=== PATIENT | female | born 1955 ===

== ENCOUNTER 2017-10-14 07:52 | Day surgery (SDC) | payer MEDICAID ==
[2017-10-14] MEDS ORDERED: PROPOFOL 10 MG/ML VIAL IV ONE (07:53)
[2017-10-14] MEDS ORDERED: LIDOCAINE 2% MDV (20MG/ML) 20ML VIAL IV ONE (07:53)
--- NOTE | 2017-10-17 09:20 | Operative Note ---
DATE OF SURGERY: 10/14/2017 SURGEON: Refugio Wilkinson MD OPERATION: COLONOSCOPY. INDICATIONS: This is a 62-year-old female with history of colon polyps who presented for surveillance colonoscopy. POSTOPERATIVE DIAGNOSES: 1. A 2 mm sessile polyp in the ascending colon that was removed by cold biopsy forceps. 2. Otherwise normal colon. ANESTHESIA: Sedation is per Anesthesia. Pulse oximetry was monitored throughout the procedure to maintain O2 saturation of 90% or greater. Supplemental oxygen was administered via nasal cannula. Cardiac and vital signs were monitored throughout the duration of the procedure, and they were stable. The procedure of colonoscopy and risks and alternatives of the procedure, including the risk of bleeding and perforation, among others, were explained to the patient who voiced understanding and agreed to have the procedure done. Physical examination was performed, and the patient was found stable for sedation. PROCEDURE: The patient was placed in the left lateral position. Sedation was initiated. A digital rectal exam was performed and showed some mild external hemorrhoids with no palpable rectal masses. An Olympus PCF-180AL colonoscope was then inserted into the rectum under direct visualization. It was advanced to the cecum without difficulty. The ileocecal valve and appendiceal orifice were identified and photographed. The colonic mucosa was carefully examined upon introduction of the colonoscope. There were no lesions noted. The light source was still bad and that made visualization difficult but enough to rule out any significant lesions. The colonoscope was then withdrawn while carefully examining the colonic mucosal surfaces. In the ascending colon was a 2 mm sessile polyp that was noted and was removed by cold biopsy forceps. There were no other lesions noted. In the rectum, retroflexion was performed and grade 1 internal hemorrhoids were noted. The colonoscope was then withdrawn and the procedure was terminated. The patient tolerated the procedure well without any immediate complications. She remained with stable vital signs and was transferred to the recovery room. RECOMMENDATIONS: 1. The patient should continue on a high-fiber diet. 2. The patient is to have a repeat colonoscopy for surveillance in 3 or 5 years depending on the histology of the polyp. Thank you for allowing me to participate in the care of your patient. CC: Rachel DEWITT
== END 2017-10-14 09:35 | disposition home or self-care (01) ==
LOC: HOP 07:52
PROVIDERS: ATTEND Internal Medicine Gastroenterology
DX: Z12.11 Encounter for screening for malignant neoplasm of colon (principal); D12.2 Benign neoplasm of ascending colon; E78.00 Pure hypercholesterolemia, unspecified; E11.9 Type 2 diabetes mellitus without complications; Z79.4 Long term (current) use of insulin

== ENCOUNTER 2017-11-29 19:46 | Emergency (ER) | payer MEDICAID ==
[2017-11-29] MEDS ORDERED: ACETAMINOPHEN 1,000 MG/100 ML BTL IVPB ONE (20:04)
[2017-11-29] MEDS ORDERED: ONDANSETRON HCL IV 4 MG/2 ML VIAL IVP ONE (20:04)
[2017-11-29] MEDS ORDERED: 0.9 % SODIUM CHLORIDE 1,000 ML BAG IV ONE (20:04)
--- NOTE | 2017-11-29 20:11 | Emergency Department Record ---
History of Present Illness - General Chief complaint: Flank Pain Stated complaint: FLANK PAIN Time Seen by Provider: 11/29/17 20:03 Source: Patient Mode of Arrival: Ambulatory Limitations: No limitations - History of Present Illness Initial comments: 62 yo female presents with right flank pain that started yesterday. The pain started in the right flank and radiates to the RLQ. She noted a color change in her urine as well. She reports she has passed about 10 renal stones in the past. No fevers, chills, or diarrhea. She has had nausea with some dry heaves. She does not see a urologist. No other recent illness. She does not see a urologist. PCP is Francisca Jeong MD Complaint: Other (Right flank Pain) Onset/Timin -: Days(s) Radiation: R flank Severity: Severe Severity scale (1-10): 8 Quality: Sharp Consistency: Constant, Getting worse Improves with: None Worsens with: Movement, Other Patient : No Associated Symptoms: Nausea/vomiting - Related Data Previous Rx's Medication Instructions Recorded Hydrocodone/Acetaminophen [Gabbs 1 each PO Q6H #15 tablet 11/29/17 5-325 Tablet] Tamsulosin HCl [Flomax] 0.4 mg PO DAILY #10 cap.er.24h 11/29/17 Allergies Allergy/AdvReac Type Severity Reaction Status Date / Time shellfish derived Allergy Severe anaphylaxis Unverified 09/22/17 08:37 Travel Screening - Travel/Exposure Within Last 30 Days Have you traveled within the last 30 days?: No - Travel Symptoms Symptom Screening: None Review of Systems Constitutional: Denies: Chills, Fever, Malaise, Weakness Eyes: Denies: Eye discharge, Eye pain, Photophobia, Vision change ENT: Denies: Congestion, Throat pain Respiratory: Denies: Cough, Dyspnea Cardiovascular: Denies: Chest pain, Syncope Endocrine: Denies: Fatigue, Polydipsia, Polyuria Gastrointestinal: Reports: As per HPI, Abdominal pain, Nausea, Vomiting. Denies : Constipation, Diarrhea, Hematochezia, Melena Genitourinary: Reports: Hematuria. Denies: Dysuria, Frequency, Urgency Musculoskeletal: Reports: As per HPI, Back pain. Denies: Arthralgia, Neck pain Skin: Denies: Bruising, Change in color, Rash Neurological: Denies: Headache, Numbness, Weakness Psychiatric: Denies: Anxiety Hematological/Lymphatic: Denies: Blood Clots, Easy bleeding, Easy bruising, Swollen glands Past Medical History - SOCIAL HISTORY Smoking Status: Never smoker Alcohol Use: None Drug Use: None - RESPIRATORY Hx Respiratory Disorders: Yes Hx Bronchitis: Yes - CARDIOVASCULAR Hx Cardio Disorders: No - NEURO Hx Neuro Disorders: Yes Hx of Migraines: Yes Hx TIA: Yes - GI Hx GI Disorders: Yes Hx Reflux: Yes Hx Irritable Bowel: Yes Hx of Polyps: Yes Comment:: constipation issues - Hx Genitourinary Disorders: Yes Hx Kidney Stones: Yes - ENDOCRINE Hx Endocrine Disorders: Yes Hx Diabetes: Yes Hx Thyroid Disease: Yes Comment:: [place] - MUSCULOSKELETAL Hx Musculoskeletal Disorders: Yes Hx Arthritis: Yes (OA) Hx Fibromyalgia: Yes Comment:: RA - PSYCH Hx Psych Problems: Yes Hx Depression: Yes - HEMATOLOGY/ONCOLOGY Hx Hematology/Oncology Disorders: No Family Medical History Any Significant Family History?: No Physical Exam - General General Appearance: Alert, Oriented x3, Cooperative, No acute distress Limitations: No limitations - Head Head exam: Normal inspection - Eye Eye exam: Normal appearance, PERRL. negative: Conjunctival injection, Scleral icterus - ENT ENT exam: Normal exam, Mucous membranes moist Ear exam: Normal external inspection Nasal Exam: Normal inspection Mouth exam: Normal external inspection - Neck Neck exam: Normal inspection, Full ROM. negative: Tenderness - Respiratory Respiratory exam: Normal lung sounds bilaterally. negative: Respiratory distress - Cardiovascular Cardiovascular Exam: Regular rate, Normal rhythm, Normal heart sounds Peripheral Pulses: 2+: Radial (R), Radial (L) - GI/Abdominal GI/Abdominal exam: Soft, Tenderness (mild R flank to RLQ tenderness but very soft). negative: Guarding, Rebound, Rigid - Rectal Rectal exam: Deferred - exam: Deferred - Extremities Extremities exam: Normal inspection. negative: Pedal edema, Tenderness - Back Back exam: Reports: CVA tenderness (R), Full ROM. Denies: CVA tenderness (L), Paraspinal tenderness, Rash noted, Vertebral tenderness - Neurological Neurological exam: Alert, Normal gait, Oriented X3 - Psychiatric Psychiatric exam: Normal affect, Normal mood - Skin Skin exam: Dry, Intact, Normal color, Warm Course Vital Signs 11/29/17 19:57 Temperature 98.4 F Pulse Rate [ 97 H Pulse Ox Probe] Respiratory 20 Rate Blood Pressure 132/79 [Left Arm] Pulse Ox 96 - Reevaluation(s) Reevaluation #1: 11/29/17 20:39 The CBC was reviewed WBC count is 12.3 The CMP was reviewed The CR is 1.1 with GFR is 53 Mild increase in glucose at 164 UA is pending 11/29/17 21:41 UA with numerous epithelial cells indicating contamination and not infection. 11/29/17 22:11 CT with a 4mm distal stone at the UVJ The patient's pain is well controlled. No fever, no WBC count. UA with contamination and no UTI symptoms. We discussed the CT, reasons for return and follow up with PCP or ED in the next 1-2 days if not passed Medical Decision Making - Lab Data Result diagrams: 11/29/17 20:13 11/29/17 20:13 Disposition Disposition: Discharge Clinical Impression: Ureteral stone Disposition: Home, Self-Care Condition: (1) Good Instructions: Renal Colic (ED), Kidney Stones (ED) Additional Instructions: Return immediately to the ED if you have fever, uncontrolled pain or any new concerns Call your doctor for close follow up or return to the ED Prescriptions: Hydrocodone/Acetaminophen [Gabbs 5-325 Tablet] 1 each PO Q6H #15 tablet Tamsulosin HCl [Flomax] 0.4 mg PO DAILY #10 cap.er.24h Forms: Patient Portal Access Time of Disposition: 22:15 Quality - Quality Measures Quality Measures: N/A - Blood Pressure Screening Does Patient Have Any of the Following: Active Dx of HTN Blood Pressure Classification: Pre-Hypertensive BP Reading Systolic Measurement: 138 Diastolic Measurement: 62 Screening for High Blood Pressure: Patient Exclusion, Hx of HTN [G9744]
[2017-11-29 20:18] LABS: BASO % 0.4 % (0-6); EOS % 3.2 % (0-6); GRAN % 54.2 % (47-80); HEMATOCRIT 44.5 % (35.0-47.0); HEMOGLOBIN 14.3 gm/dl (11.6-16.0); LYMPH % 33.2 % (16-45); MEAN CELL VOLUME 88.3 fl (81-97); MEAN CORPUSCULAR HEMOGLOBIN 28.4 pg (27-33); MEAN CORPUSCULAR HGB CONC 32.1 g/dl (32-36); MEAN PLATELET VOLUME 9.5 fl (7.4-10.4); PLATELET COUNT 418 K/uL (130-400); RED BLOOD COUNT 5.04 M/uL (3.80-5.40); RED CELL DISTRIBUTION WIDTH 14.1 % (11.5-14.5); WHITE BLOOD COUNT W/O DIFF 12.3 K/uL (4.2-12.2)
[2017-11-29 20:28] LABS: BILIRUBIN,TOTAL 0.4 mg/dL (0.2-1.0); CREATININE 1.1 mg/dL (0.5-0.9); TOTAL PROTEIN 7.8 g/dL (6.6-8.7)
[2017-11-29 20:33] LABS: ALB/GLOB RATIO 1.1 (1.1-1.8)
[2017-11-29 21:13] LABS: URINE APPEARANCE CLEAR; URINE BILIRUBIN NEGATIVE (NEGATIVE); URINE BLOOD SMALL (NEGATIVE); URINE COLOR YELLOW; URINE GLUCOSE (UA) NEGATIVE (NEGATIVE); URINE KETONE NEGATIVE (NEGATIVE); URINE LEUKOCYTE ESTERASE MODERATE (NEGATIVE); URINE NITRITE NEGATIVE (NEGATIVE); URINE PROTEIN NEGATIVE (NEGATIVE); URINE UROBILINOGEN 0.2 E.U./dL (0.20 - 1.00)
[2017-11-29 21:28] LABS: URINE BACTERIA FEW; URINE EPITHELIAL CELLS 21 - 35 (FEW); URINE RBC 0 - 2 (NONE SEEN)
[2017-11-29] MEDS ORDERED: TAMSULOSIN HCL 0.4 MG CAP.ER.24H PO ONE (21:30)
[2017-11-29] MEDS ORDERED: HYDROCODONE/APAP 5/325MG TABLET PO ONE (22:15)
--- NOTE | 2017-12-01 07:46 | CT SCAN REPORT ---
EXAM: EMERGENCY CT SCAN OF THE ABDOMEN AND PELVIS WITHOUT CONTRAST HISTORY: RIGHT FLANK PAIN, HISTORY OF STONES. NAUSEA. TECHNIQUE: Axial CT scan of the abdomen and pelvis was performed without oral or IV contrast. Comparison: No prior CT of the abdomen or pelvis with which to compare. FINDINGS: Surgical clips in the gallbladder fossa consistent with cholecystectomy. There are multiple calcifications in both kidneys consistent with currently nonobstructing intrarenal calculi bilaterally, however, there is mild hydronephrosis and hydroureter on the right with a dilated right ureter followed down into the pelvis where it leads to an approximately 4 mm in length calcification consistent with a lower right ureteral calculus causing a component of obstruction. This is a short distance above the actual UVJ itself. The short length of right ureter distal to this is of normal caliber. No bladder calculus evident. No hydronephrosis or hydroureter seen on the left with no left ureteral calculus evident. Evaluation of the bowel and viscera are very limited without oral or IV contrast. Given this limitation, no definite hepatic or splenic mass seen. There are several small calcified splenic granulomas present. Small adrenal calcifications are seen bilaterally with no adrenal mass evident. No definite pancreatic or renal mass identified. Minor linear fibrosis or discoid atelectasis left base posteriorly. No free intraperitoneal air or free intraperitoneal fluid identified. Hypertrophic spurring in the thoracic spine in particular and prominent facet joint arthropathy in the lower lumbar spine. Degenerative disk disease at the lumbosacral interspace. IMPRESSION: 1. APPEARANCE CONSISTENT WITH AN APPROXIMATELY 4 MM LOWER RIGHT URETERAL CALCULUS CAUSING A COMPONENT OF OBSTRUCTION ON THE RIGHT. 2. THERE ARE ADDITIONAL BILATERAL CURRENTLY NONOBSTRUCTING INTRARENAL CALCULI. 3. POSTOP CHOLECYSTECTOMY. 4. NUMEROUS CALCIFIED SPLENIC GRANULOMAS. 5. DEGENERATIVE CHANGE IN THE SPINE. JOB NUMBER: [id number] [facility]
== END 2017-11-29 22:26 | disposition home or self-care (01) ==
LOC: ER 19:46
DX: N20.1 Calculus of ureter (principal); R11.2 Nausea with vomiting, unspecified; E11.9 Type 2 diabetes mellitus without complications; Z87.442 Personal history of urinary calculi
CPT/HCPCS: 99284 ×2; 96374; 96375; 85025; 80053; 81001; 74176; J2405; J7030

== ENCOUNTER 2017-12-01 10:53 | Emergency (ER) | payer MEDICAID ==
[2017-12-01] MEDS ORDERED: 0.9 % SODIUM CHLORIDE 1,000 ML BAG IV ONE (12:34)
[2017-12-01 12:47] LABS: BASO % 0.3 % (0-6); EOS % 2.8 % (0-6); GRAN % 68.4 % (47-80); HEMATOCRIT 39.7 % (35.0-47.0); HEMOGLOBIN 12.4 gm/dl (11.6-16.0); LYMPH % 19.9 % (16-45); MEAN CELL VOLUME 88.8 fl (81-97); MEAN CORPUSCULAR HEMOGLOBIN 27.7 pg (27-33); MEAN CORPUSCULAR HGB CONC 31.2 g/dl (32-36); MEAN PLATELET VOLUME 9.1 fl (7.4-10.4); MONO % 8.6 % (0-9); PLATELET COUNT 310 K/uL (130-400); RED BLOOD COUNT 4.47 M/uL (3.80-5.40); RED CELL DISTRIBUTION WIDTH 13.9 % (11.5-14.5); WHITE BLOOD COUNT W/O DIFF 11.3 K/uL (4.2-12.2)
[2017-12-01 12:58] LABS: BLOOD UREA NITROGEN 15 mg/dL (8-23)
[2017-12-01 12:59] LABS: CREATININE 0.9 mg/dL (0.5-0.9); EST GLOMERULAR FILTRATION RATE > 60 mL/min
[2017-12-01 13:01] LABS: GLUCOSE,RANDOM 146 mg/dL (74-109)
[2017-12-01 14:14] LABS: URINE APPEARANCE CLEAR; URINE BILIRUBIN NEGATIVE (NEGATIVE); URINE BLOOD NEGATIVE (NEGATIVE); URINE COLOR YELLOW; URINE GLUCOSE (UA) NEGATIVE (NEGATIVE); URINE KETONE NEGATIVE (NEGATIVE); URINE NITRITE NEGATIVE (NEGATIVE); URINE PROTEIN NEGATIVE (NEGATIVE); URINE UROBILINOGEN 0.2 E.U./dL (0.20 - 1.00)
[2017-12-01 14:29] LABS: URINE LEUKOCYTE ESTERASE TRACE (NEGATIVE)
[2017-12-01 14:31] LABS: URINE RBC NONE SEEN (NONE SEEN); URINE WBC 0 - 2 (0-2/hpf)
[2017-12-01] MEDS ORDERED: HYDROMORPHONE HCL 2 MG/ML VIAL IVP ONE (14:44)
--- NOTE | 2017-12-01 14:45 | Emergency Department Record ---
History of Present Illness - General Chief complaint: Flank Pain Stated complaint: KIDNEY STONE Time Seen by Provider: 12/01/17 12:11 Source: Patient Mode of Arrival: Ambulatory Limitations: No limitations - History of Present Illness Initial comments: pt dxd few days agowith 4mm kidney stone a few days ago. she states she is not getting any better. she has had stones before. she doesnot have a urologist MD Complaint: Other Onset/Timin -: Days(s) Radiation: R flank Severity scale (1-10): 9 Quality: Burning, Other Consistency: Constant Improves with: None Worsens with: None Patient : No Associated Symptoms: Nausea/vomiting - Related Data Previous Rx's Medication Instructions Recorded Hydrocodone/Acetaminophen [[place] 1 each PO Q6H #15 tablet 11/29/17 5-325 Tablet] Tamsulosin HCl [Flomax] 0.4 mg PO DAILY #10 cap.er.24h 11/29/17 Cephalexin [Keflex] 500 mg PO QID #30 cap 12/01/17 Hydrocodone/Acetaminophen [[place] 1 each PO Q6HR #10 tablet 12/01/17 5-325 Tablet] Allergies Allergy/AdvReac Type Severity Reaction Status Date / Time shellfish derived Allergy Severe anaphylaxis Unverified 09/22/17 08:37 Travel Screening - Travel/Exposure Within Last 30 Days Have you traveled within the last 30 days?: No Review of Systems Reviewed: No additional complaints except as noted below Constitutional: Reports: As per HPI. Denies: Chills, Fever, Malaise, Night sweats, Weakness, Weight change Eyes: Reports: As per HPI. Denies: Eye discharge, Eye pain, Photophobia, Vision change ENT: Reports: As per HPI. Denies: Congestion, Dental pain, Ear pain, Epistaxis , Hearing loss, Throat pain Respiratory: Reports: As per HPI. Denies: Cough, Dyspnea, Hemoptysis, Stridor, Wheezes Cardiovascular: Reports: As per HPI. Denies: Arrhythmia, Chest pain, Dyspnea on exertion, Edema, Murmurs, Orthopnea, Palpitations, Paroxysmal nocturnal dyspnea, Rheumatic Fever, Syncope Endocrine: Reports: As per HPI. Denies: Fatigue, Heat or cold intolerance, Polydipsia, Polyuria Gastrointestinal: Reports: As per HPI. Denies: Abdominal pain, Constipation, Diarrhea, Hematemesis, Hematochezia, Melena, Nausea, Vomiting Genitourinary: Reports: As per HPI. Denies: Abnormal menses, Discharge, Dyspareunia, Dysuria, Frequency, Hematuria, Incontinence, Retention, Urgency Musculoskeletal: Reports: As per HPI. Denies: Arthralgia, Back pain, Gout, Joint swelling, Myalgia, Neck pain Skin: Reports: As per HPI. Denies: Bruising, Change in color, Change in hair/ nails, Lesions, Pruritus, Rash Neurological: Reports: As per HPI. Denies: Abnormal gait, Confusion, Headache, Numbness, Paresthesias, Seizure, Tingling, Tremors, Vertigo, Weakness Psychiatric: Reports: As per HPI. Denies: Anxiety, Auditory hallucinations, Depression, Homicidal thoughts, Suicidal thoughts, Visual hallucinations Hematological/Lymphatic: Reports: As per HPI. Denies: Anemia, Blood Clots, Easy bleeding, Easy bruising, Swollen glands Past Medical History - SOCIAL HISTORY Smoking Status: Never smoker Alcohol Use: None Drug Use: None - RESPIRATORY Hx Respiratory Disorders: Yes Hx Bronchitis: Yes - CARDIOVASCULAR Hx Cardio Disorders: No - NEURO Hx Neuro Disorders: Yes Hx of Migraines: Yes Hx TIA: Yes - GI Hx GI Disorders: Yes Hx Reflux: Yes Hx Irritable Bowel: Yes Hx of Polyps: Yes Comment:: constipation issues - Hx Genitourinary Disorders: Yes Hx Kidney Stones: Yes - ENDOCRINE Hx Endocrine Disorders: Yes Hx Diabetes: Yes Hx Thyroid Disease: Yes Comment:: [place] - MUSCULOSKELETAL Hx Musculoskeletal Disorders: Yes Hx Arthritis: Yes (OA) Hx Fibromyalgia: Yes Comment:: RA - PSYCH Hx Psych Problems: Yes Hx Depression: Yes - HEMATOLOGY/ONCOLOGY Hx Hematology/Oncology Disorders: No Family Medical History Any Significant Family History?: No Physical Exam - General General Appearance: Alert, Oriented x3, Cooperative, Mild distress - Head Head exam: Normal inspection - Eye Eye exam: Normal appearance, PERRL, EOMI Pupils: Normal accommodation - ENT ENT exam: Normal exam, Mucous membranes moist, Normal external ear exam, Normal orophraynx Ear exam: Normal external inspection. negative: External canal tenderness Nasal Exam: Normal inspection. negative: Discharge, Sinus tenderness Mouth exam: Normal external inspection, Tongue normal Teeth exam: Normal inspection. negative: Dental caries Throat exam: Normal inspection. negative: Tonsillar erythema, Tonsillar exudate - Neck Neck exam: Normal inspection, Full ROM. negative: Tenderness - Respiratory Respiratory exam: Normal lung sounds bilaterally. negative: Respiratory distress - Cardiovascular Cardiovascular Exam: Regular rate, Normal rhythm, Normal heart sounds - GI/Abdominal GI/Abdominal exam: Soft, Normal bowel sounds. negative: Tenderness - Rectal Rectal exam: Deferred - exam: Deferred - Extremities Extremities exam: Normal inspection, Full ROM, Normal capillary refill. negative: Tenderness - Back Back exam: Reports: Normal inspection, Full ROM. Denies: Muscle spasm, Rash noted, Tenderness - Neurological Neurological exam: Alert, CN II-XII intact, Normal gait, Oriented X3 - Psychiatric Psychiatric exam: Normal affect, Normal mood - Skin Skin exam: Dry, Intact, Normal color, Warm Course Vital Signs 12/01/17 12:14 Temperature 98.3 F Pulse Rate [ 99 H Pulse Ox Probe] Respiratory 20 Rate Blood Pressure 152/77 [Left Arm] Pulse Ox 94 L - Reevaluation(s) Reevaluation #1: 12/01/17 15:01 d/w dr lu who will see pt tomorrow in his office. Medical Decision Making - Lab Data Result diagrams: 12/01/17 12:35 12/01/17 12:35 Lab Results 12/01/17 12/01/17 12/01/17 Range/Units 12:35 12:35 13:45 WBC 11.3 (4.2-12.2) K/uL RBC 4.47 (3.80-5.40) M/uL Hgb 12.4 (11.6-16.0) gm/dl Hct 39.7 (35.0-47.0) % MCV 88.8 (81-97) fl MCH 27.7 (27-33) pg MCHC 31.2 L (32-36) g/dl RDW 13.9 (11.5-14.5) % Plt Count 310 (130-400) K/uL MPV 9.1 (7.4-10.4) fl Gran % 68.4 (47-80) % Lymphocytes % 19.9 (16-45) % Monocytes % 8.6 (0-9) % Eosinophils % 2.8 (0-6) % Basophils % 0.3 (0-6) % Sodium 137 (136-145) mmol/L Potassium 4.1 (3.4-4.5) mmol/L Chloride 99 (98-107) mmol/L Carbon Dioxide 27.0 (22-29) mmol/L Anion Gap 11.0 (7-16) BUN 15 (8-23) mg/dL Creatinine 0.9 (0.5-0.9) mg/dL Estimated GFR > 60 mL/min Random Glucose 146 H (74-109) mg/dL Calcium 9.3 (8.8-10.2) mg/dL Urine Color Yellow Urine Appearance Clear Urine pH 6.5 (5.0-8.0) Ur Specific [place] 1.010 (1.002-1.030) Urine Protein Negative (NEGATIVE) Urine Glucose (UA) Negative (NEGATIVE) Urine Ketones Negative (NEGATIVE) Urine Blood Negative (NEGATIVE) Urine Nitrite Negative (NEGATIVE) Urine Bilirubin Negative (NEGATIVE) Urine Urobilinogen 0.2 (0.20 - 1.00) E.U./dL Ur Leukocyte Esterase Trace H (NEGATIVE) Urine RBC None seen (NONE SEEN) Urine WBC 0 - 2 (0-2/hpf) Ur Epithelial Cells 7 - 10 (FEW) Disposition Disposition: Discharge Clinical Impression: Renal lithiasis Hydronephrosis Qualifiers: Hydronephrosis type: with ureteral calculous obstruction Qualified Code(s): N13.2 - Hydronephrosis with renal and ureteral calculous obstruction Disposition: Home, Self-Care Condition: (1) Good Instructions: Kidney Stones (ED), How to Strain Your Urine (ED) Additional Instructions: follow up with dr lu tomorrow without fail. return sooner if worse. push fluids Prescriptions: Hydrocodone/Acetaminophen [[place] 5-325 Tablet] 1 each PO Q6HR #10 tablet Cephalexin [Keflex] 500 mg PO QID #30 cap Referrals: TAPAN JOHNSON M.D. [MEDICAL DOCTOR] - Forms: Patient Portal Access Quality - Quality Measures Quality Measures: N/A - Blood Pressure Screening Does Patient Have Any of the Following: No Blood Pressure Classification: Hypertensive Reading Systolic Measurement: 152 Diastolic Measurement: 77 Screening for High Blood Pressure: < Normal BP, F/U Not Required > [G4946]
[2017-12-01] MEDS ORDERED: CEPHALEXIN 500 MG CAPSULE PO STA (14:56)
--- NOTE | 2017-12-02 07:37 | CT SCAN REPORT ---
EXAM: CT OF THE ABDOMEN AND PELVIS HISTORY: RIGHT FLANK PAIN. TECHNIQUE: CT of the abdomen and pelvis was performed without oral or IV contrast. This limits evaluation of bowel and solid visceral organs. Comparison: 11/29/17 CT. FINDINGS: Limited evaluation of the lung bases is unremarkable. The osseous structures are grossly intact. Splenic granulomata. The spleen is otherwise unremarkable. Calcifications of the adrenal glands bilaterally. Status post cholecystectomy. The liver is grossly unremarkable. The visualized portions of the pancreas are unremarkable. Multiple nonobstructing renal calculi bilaterally. In addition there is moderate right sided hydronephrosis and hydroureter secondary to an approximately 5 mm distal right ureteral calculus. There is a large amount of stool in the colon. No gross evidence for bowel obstruction. No free air or free fluid. IMPRESSION: MODERATE RIGHT SIDED HYDRONEPHROSIS AND HYDROURETER SECONDARY TO A 5 MM DISTAL RIGHT URETERAL CALCULUS. MULTIPLE OTHER NONOBSTRUCTING RENAL CALCULI ARE NOTED BILATERALLY. JOB NUMBER: [id number] MTDD
== END 2017-12-01 15:32 | disposition home or self-care (01) ==
LOC: ER 10:53
DX: N20.2 Calculus of kidney with calculus of ureter (principal); R11.2 Nausea with vomiting, unspecified; Z87.442 Personal history of urinary calculi
CPT/HCPCS: 99284 ×2; 96374; 96361; 85025; 80048; 81001; 74176; J1170; J7030